=== PATIENT | male | born 1990 | race Caucasian/White ===

== ENCOUNTER 2016-08-22 14:49 | Emergency (ER) | payer OTHER ==
[2016-08-22 14:58] LABS: EOSINOPHIL (%) 1.7 % (0-5); EOSINOPHIL COUNT 0.2 K/uL (0-0.3); HEMATOCRIT 46.4 % (38.0-50.0); IMMATURE GRANULOCYTE (%) 0.6 % (0.0-0.7); IMMATURE GRANULOCYTE COUNT 0.1 K/uL; INSTRUMENT ABS NEUTROPHIL CT 8.3 K/uL; LYMPHOCYTE COUNT 2.5 K/uL (1.0-2.8); MCH 26.9 PG (29.0-34.0); MCHC 33.2 G/DL (30.0-36.0); MEAN PLAT.VOLUME 9.7 uM^3 (9.0-12.4); MONOCYTE (%) 4.9 % (3-12); MONOCYTE COUNT 0.6 K/uL (0-0.8); NEUTROPHIL (%) 71.4 % (45-76); NEUTROPHIL COUNT 8.3 K/uL (1.8-6.4); PLATELET COUNT 259 K/uL (156-360); RBC DIS.WIDTH-CV 13.3 % (11.8-14.6); RBC DIS.WIDTH-SD 38.6 % (39-53); RED BLOOD COUNT 5.73 M/uL (4.00-5.50); WHITE BLOOD COUNT 11.6 K/uL (4.1-10.2)
[2016-08-22 15:10] LABS: AMYLASE 54 IU/L (1-118); CHLORIDE 105 mEq/L (99-109); POTASSIUM 3.7 mEq/L (3.7-5.4); SODIUM 137 mEq/L (136-147)
[2016-08-22 15:12] LABS: GLUCOSE 186 mg/dL (70-99)
[2016-08-22 15:13] LABS: ANION GAP 12 MEQ/L (2-14)
[2016-08-22 15:15] LABS: SERUM ETHYL ALCOHOL < 10 mg/dL
[2016-08-22 15:16] LABS: GFR ESTIMATE (CALCULATED) > 59 mL/min/; UREA NITROGEN (BUN) 17 mg/dL (9-23)
[2016-08-22 15:19] LABS: LIPASE 20 U/L (1.0-51.0)
[2016-08-22] MEDS ORDERED: KEFLEX500 MG PO (17:36)
[2016-08-22] MEDS ORDERED: NAPROSYN500 MG PO (17:36)
== END 2016-08-22 18:49 | disposition home or self-care (01) ==
LOC: TRA 14:49
PROVIDERS: Emergency Medicine
PROC: 3E0234Z Introduction of Serum, Toxoid and Vaccine into Muscle, Percutaneous Approach (ICD-10-PCS; principal; 2016-08-22)
DX: S01.511A Laceration without foreign body of lip, initial encounter (principal); S02.2XXA Fracture of nasal bones, initial encounter for closed fracture; M54.2 Cervicalgia; M79.601 Pain in right arm; M79.671 Pain in right foot; M25.561 Pain in right knee; V22.4XXA Motorcycle driver injured in collision with two- or three-wheeled motor vehicle in traffic accident, initial encounter; Y92.410 Unspecified street and highway as the place of occurrence of the external cause; Z23 Encounter for immunization
CPT/HCPCS: 70450; 70486; 71260; 72125; 72129; 72132; 73080; 73560; 73630; 74177; 80048; 81003; 82150; 83690; 85025; 86900; 86901; 99281; 99285; G0480; J2405; J3010

== ENCOUNTER 2017-07-25 15:21 | Emergency (ER) | payer OTHER ==
[~2017-07-25] VITALS: Ht 170.2 cm; Wt 94.5 kg
[~2017-07-25 15:21] MED LIST: KEFLEX500 MG PO; NAPROSYN500 MG PO
[2017-07-25 16:06] LABS: HEMOGLOBIN 14.9 G/DL (12.5-16.6); MCH 27.3 PG (29.0-34.0); MCHC 33.1 G/DL (30.0-36.0); MCV 82.6 FL (86-99); RBC DIS.WIDTH-CV 13.2 % (11.8-14.6); RBC DIS.WIDTH-SD 39.5 % (39-53); RED BLOOD COUNT 5.45 M/uL (4.00-5.50); WHITE BLOOD COUNT 11.3 K/uL (4.1-10.2)
[2017-07-25 16:15] LABS: CHLORIDE 103 mEq/L (99-109); POTASSIUM 4.2 mEq/L (3.7-5.4); SODIUM 143 mEq/L (136-147)
[2017-07-25 16:16] LABS: GLUCOSE 108 mg/dL (70-99)
[2017-07-25 16:20] LABS: GFR ESTIMATE (CALCULATED) > 59 mL/min/ (58.99-99999)
[2017-07-25 16:21] LABS: UREA NITROGEN (BUN) 12 mg/dL (9-23)
[2017-07-25 16:38] LABS: PLATELET COUNT 268 K/uL (156-360)
[2017-07-25] MEDS ORDERED: MECLIZINE HCL25 MG PO (18:16)
[2017-07-25 18:51] VITALS: BP 132/92
== END 2017-07-25 18:55 | disposition home or self-care (01) ==
LOC: EME 15:21
DX: R42 Dizziness and giddiness (principal)
CPT/HCPCS: 80048; 85027; 99281; 99284